=== PATIENT | female | born 1960 | race Caucasian/White ===

== ENCOUNTER 2021-09-24 23:44 | Emergency (ER) | payer MEDICAID, OTHER ==
[~2021-09-24] VITALS: Ht 157.5 cm; Wt 63.5 kg
[2021-09-24 23:46] VITALS: BP 182/80
== END 2021-09-25 01:41 | disposition home or self-care (01) ==
LOC: ER 23:46
DX: L23.9 Allergic contact dermatitis, unspecified cause (principal)

== ENCOUNTER 2022-09-28 16:01 | Emergency (ER) | payer MEDICAID ==
[~2022-09-28] VITALS: Ht 157.5 cm; Wt 72.5 kg
[2022-09-28] MEDS ORDERED: ALBUTEROL SULF 2.5 MG/0.5ML(0.5%) NEB SOLN NEB ONE (16:45)
[2022-09-28] MEDS ORDERED: IPRATROPIUM BROM 0.5 MG/2.5ML INH SOL NEB ONE (16:45)
[2022-09-28] MEDS ORDERED: DexAMETHasone SOD PHOS 10MG/1ML VIAL INJ IM ONE (16:45)
[2022-09-28] MEDS ORDERED: TIOTCAP IN ×2 (17:48)
[2022-09-28] MEDS ORDERED: ALBU108A5 IN ×2 (17:48)
[2022-09-28 18:40] VITALS: BP 141/86
[2022-09-29] MEDS ORDERED: ALBU108A5 IN (04:05)
[2022-09-29] MEDS ORDERED: TIOTCAP IN (04:05)
== END 2022-09-28 18:47 | disposition home or self-care (01) ==
LOC: ER 16:01
DX: J43.9 Emphysema, unspecified (principal); F17.210 Nicotine dependence, cigarettes, uncomplicated
CPT/HCPCS: 71046; 93005; 94640; 96372; 99283; J1100; J7644